=== PATIENT | male | born 1995 | race Two or more races ===

== ENCOUNTER 2019-06-23 15:26 | Emergency (ER) | payer MEDICAID ==
--- NOTE | 2019-06-23 16:04 | ED Physician Documentation ---
PD HPI UPPER EXT INJURY - Stated complaint Stated Complaint: LT PINKY LAC - Chief complaint Chief Complaint: Laceration - History obtained from History obtained from: Patient - History of Present Illness Location: Left, Finger (little) Type of injury: Fall (He tripped in the garage and caught his finger on the edge of the HVAC sheet-metal. He has a laceration there that bled briskly initially. He denies any weakness or numbness of the finger. He denies other injury.) Where injury occurred: Home Timing - onset: Today Worsened by: Palpating Associated symptoms: No: Weakness, Numbness Recently seen: Not recently seen Review of Systems Skin: reports: Laceration (s) Neurologic: denies: Focal weakness, Numbness PD PAST MEDICAL HISTORY - Past Medical History Past Medical History: No - Past Surgical History Past Surgical History: No - Present Medications Home Medications: Ambulatory Orders Medication Instructions Recorded Confirmed No Known Home Medications 01/09/15 01/09/15 - Allergies Allergies/Adverse Reactions: Allergies Allergy/AdvReac Type Severity Reaction Status Date / Time No Known Drug Allergies Allergy Verified 01/09/15 09:40 - Social History Does the pt smoke?: Yes Smoking Status: Current every day smoker Does the pt drink ETOH?: No Does the pt have substance abuse?: No - Immunizations Immunizations are current?: Yes PD ED PE NORMAL - Vitals Vital signs reviewed: Yes - General General: Alert and oriented X 3, No acute distress, Well developed/nourished - Derm Derm: Normal color, Warm and dry - Extremities Extremities: Other (The left little finger shows a laceration along the ulnar side at the middle phalanx. There is no foreign bodies noted. It does not extend to the tendon area. He has good flexion and extension against resistance. There is normal sensation at the fingertip. The nailbed is not involved. There is mild bleeding at this time.) - Neuro Neuro: No motor deficit, No sensory deficit Results - Vitals Vitals: Vital Signs - 24 hr 06/23/19 16:42 Temperature 36.6 C Heart Rate 71 Respiratory 16 Rate Blood Pressure 144/84 H O2 Saturation 100 Oxygen O2 Source Room air PD MEDICAL DECISION MAKING - ED course Complexity details: considered differential (He quite adamantly does not want stitches as he is quite afraid of needles. I told him we could try topical numbing but is still declined. The wound is such that size wilkerson it could be treated with Steri-Strips and glue but the main issue is still with some bleeding that is going to hinder the adherence. We compromised on doing the glue and Steri-Strips with the realization he will try need to replace them tomorrow when the bleeding is stopped.), d/w patient ED course: He likely is up-to-date on his tetanus as he would have had it in high school around age 15 or 16. He believes that was true. Departure - Departure Disposition: 01 Home, Self Care Clinical Impression: Finger laceration Qualifiers: Encounter type: initial encounter Finger: little finger Damage to nail status: without damage Foreign body presence: without foreign body Laterality: left Qualified Code(s): S61.217A - Laceration without foreign body of left little finger without damage to nail, initial encounter Condition: Stable Record reviewed to determine appropriate education?: Yes Instructions: ED Laceration Hand Comments: Leave the initial Steri-Strips and bandage on for a day or 2 and then remove it and remove all the bandaging. At that point the bleeding should have stopped and you can replace the Steri-Strips for more tight closure of the wound and then leave those in place for about a week. Slight motion is okay try to avoid significant motion of the finger. Tylenol or ibuprofen if needed for pains. Recheck if signs of infection. Discharge Date/Time: 06/23/19 16:44
[2019-06-23 16:43] VITALS: BP 144/84
== END 2019-06-23 16:44 | disposition home or self-care (01) ==
LOC: ED 15:26
DX: S61.217A Laceration without foreign body of left little finger without damage to nail, initial encounter (principal); W26.8XXA Contact with other sharp object(s), not elsewhere classified, initial encounter; Y92.008 Other place in unspecified non-institutional (private) residence as the place of occurrence of the external cause; F17.200 Nicotine dependence, unspecified, uncomplicated
CPT/HCPCS: 12001; 99281; 99282

== ENCOUNTER 2020-07-15 09:10 | Emergency (ER) | payer MEDICAID ==
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
--- NOTE | 2020-07-15 10:34 | XRAY Report ---
PROCEDURE: Elbow 3 View RT INDICATIONS: medial contusion can not extend TECHNIQUE: 3 views of the elbow were acquired. COMPARISON: None. FINDINGS: Bones: No acute fractures or dislocations. No suspicious bony lesions. Soft tissues: No significant elbow joint effusion. No suspicious soft tissue calcifications. IMPRESSION: No acute osseous abnormality. If there is clinical concern or persistent symptoms, additional imaging such as repeat radiographs or advanced imaging (e.g. CT, MRI) may be helpful for further evaluation. Reviewed by: Clinton Barillas MD on 07/15/2020 9:32 AM MISTI Approved by: Clinton Barillas MD on 07/15/2020 9:32 AM MISTI Station ID: [id number]
[2020-07-15 10:45] VITALS: BP 136/79
== END 2020-07-15 10:47 | disposition home or self-care (01) ==
LOC: ED 09:10
DX: S59.901A Unspecified injury of right elbow, initial encounter (principal); W50.0XXA Accidental hit or strike by another person, initial encounter; Y93.83 Activity, rough housing and horseplay
CPT/HCPCS: 99282; 99283